=== PATIENT | male | born 1955 | race Caucasian/White ===

== ENCOUNTER → 2023-07-13 | Outpatient (CLI) | payer MEDICARE, OTHER ==
[2023-07-13 15:24] LABS: HCT 38.1 % (39.6-50.0); HGB 12.1 g/dL (13.0-17.0); MCH 26.5 pg (27.0-32.0); MCHC 31.8 g/dL (32.0-37.0); MCV 83.6 FL (80.0-97.0); Mean Platelet Volume 10.6 FL (9.5-12.2); NRBC Per 100 WBC 0 X 10*3/uL (0.00-0.01); Platelet Count 186 X 10*3/uL (140-440); RBC 4.56 X 10*6/uL (4.40-5.60); RDW 13.8 % (11.5-14.5); WBC 6.52 X 10*3/uL (4.50-10.00)
[2023-07-13 15:41] LABS: Blood Urea Nitrogen 17.5 mg/dL (9.0-27.0); Carbon Dioxide 22.8 mmol/L (21.6-31.8); Chloride 105 mmol/L (96-109); Potassium 4.2 mmol/L (3.5-5.5); Sodium 142 mmol/L (135-145)
== END | disposition home or self-care (01) ==
LOC: LABPRL 10:24
PROVIDERS: ATTEND Internal Medicine
DX: Z01.812 Encounter for preprocedural laboratory examination (principal); I35.0 Nonrheumatic aortic (valve) stenosis
CPT/HCPCS: 36415; 80051; 82565; 84520; 85027

== ENCOUNTER 2023-07-20 10:45 | Day surgery (SDC) | payer MEDICARE, OTHER ==
[~2023-07-20 10:45] MED LIST: ALPRAZolam 0.25 MG TAB PO PRN; ALPRAZolam 0.5 MG TAB PO PRN; HEPARIN SODIUM,PORCINE (1 ML) 2,500 UNIT in SODIUM CHLORIDE 0.9% 250 ML IRRIGATION PRN; HEPARIN SODIUM,PORCINE 10,000 UNIT in SODIUM CHLORIDE 0.9% 1,000 ML IRRIGATION PRN; NITROGLYCERIN SL TABS 0.4 MG TAB SUBLINGUAL PRN
[2023-07-20] MEDS: SODIUM CHLORIDE 0.9% 1,000 ML IV ONE ×2 (11:11→15:36)
[2023-07-20] MEDS ORDERED: VERAPAMIL 2.5 MG/ML 2 ML AMP ONE (14:05)
[2023-07-20] MEDS ORDERED: HEPARIN SODIUM 1,000 UN/ML (10ML VL) ONE (14:05)
[2023-07-20] MEDS ORDERED: LIDOCAINE 1% INJ 10MG/ML (20 ML MDV) ONE (14:06)
[2023-07-20] MEDS ORDERED: fentaNYL (PF) 50 MCG/ML 2 ML AMP ONE (14:06)
[2023-07-20] MEDS: BENZOCAINE SPRAY 1 CAN TOPICAL ONE ×2 (14:29→14:31)
[2023-07-20] MEDS: fentaNYL (PF) 50 MCG/ML 2 ML AMP IVP ONE ×2 (14:31→14:33)
[2023-07-20] MEDS: MIDAZOLAM 2 MG/2 ML VIAL IVP ONE ×2 (14:31→14:32)
--- NOTE | 2023-07-20 14:53 | P.TEE ---
Description of Procedure(s): Procedure performed: Transesophageal Echocardiogram with color flow doppler, pulsed wave doppler and continuous wave doppler, moderate conscious sedation Moderate conscious sedation: Moderate conscious sedation was supplied with direct supervision of myself using Versed and Fentanyl. Complications: none Indications: Moderate to severe aortic stenosis PROCEDURE: After the risks, benefits and alternatives of the above mentioned procedure was explained in detail with the patient, informed consent was obtained. Patient was brought to the lab in a fasting state. Patient was given IV Versed and Fentanyl for sedation. The throat was sprayed with Hurricane to anesthetize the throat. A lubricated Omni probe was then introduced into the esophagus and stomach and multiple views were obtained. 2D echo with color flow doppler, pulsed wave doppler and continuous wave doppler was utilized. Agitated saline bubbles were injected to assess for any intra-atrial shunt. The probe was then removed. Patient tolerated the procedure well. Patient was transferred to the post procedure area in stable and satisfactory condition. FINDINGS: 1. The aortic valve appears bicuspid with fusion of the left and right coronary cusp with moderate to severe aortic stenosis, aortic valve area by planimetry 1.0 cm however V-max 3.5 m/s 2. The mitral valve appears be normal with mild mitral regurgitation. 3. Tricuspid valve appears to be normal. 4. The interatrial septum is intact. No evidence of PFO by bubble study. 5. Left atrial appendage is free of clot. 6. Left ventricular ejection fraction 50 to 55%
[2023-07-20] MEDS: LIDOCAINE 1% INJ 10MG/ML (20 ML MDV) SQ ONE (14:56)
[2023-07-20] MEDS: VERAPAMIL SYRINGE (5 MG/10 ML) INTRAARTER ONE (14:58)
[2023-07-20] MEDS: HEPARIN SODIUM 1,000 UN/ML (10ML VL) IVP ONE (15:03)
[2023-07-20] MEDS: IOPAMIDOL-370 100ML BTL INJ ONE (15:16)
[2023-07-20] MEDS ORDERED: RX INFO: IV CONTRAST WAS GIVEN 1 EACH MISC MISCELLANE PRN (15:27)
--- NOTE | 2023-07-20 16:23 | P.CARDCATH ---
Description of Procedure: PROCEDURES PERFORMED: Left heart catheterization, bilateral coronary angiography, ultrasound guided arterial access INDICATION: Aortic stenosis CONSENT:I have discussed the risks, benefits and alternative therapies for the above-mentioned procedure and for both sedation/analgesia as well as necessary blood product administration, if indicated, as they pertain to this patient. The patient has indicated understanding and acceptance of the risks and procedures discussed. PROCEDURE: After the risks, benefits and alternatives of the above mentioned procedure explained in detail with the patient, informed consent was obtained. Patient was taken to the catheterization lab and prepped and draped in usual fashion. Ultrasound guidance was used to assess for arterial access. 1% lidocaine was used to anesthetize the right radial artery. A 6-Hungarian sheath was placed in the right radial artery using modified Seldinger technique and ultrasound guidance. Left coronary angiography was performed with a 5-Hungarian JL 3.5 catheter and right coronary angiography was performed with a 5-Hungarian FR5 catheter in various views. A 5-Hungarian FR5 catheter was inserted into the left ventricle with the use of a 0.035 straight wire and pressure measurements were obtained. The right radial sheath was removed and a TR band was placed with hem ostasis achieved. The patient tolerated the procedure well. Patient was transported back to the post catheterization holding area in stable condition. Conscious Sedation: Patient was monitored under the direct supervision of myself for conscious sedation using Versed and fentanyl for a total duration of 20 minutes HEMODYNAMICS: Aortic: 121/78 LV: 138/8, LVEDP 25, mean gradient with pullback 22.5 mmHg SELECTIVE CORONARY ARTERIOGRAPHY: LEFT MAIN: The left main is a large caliber vessel which bifurcates into the LAD and circumflex. There is no significant stenosis. LEFT ANTERIOR DESCENDING CORONARY ARTERY: LAD is a large caliber vessel which wraps around to the apex. There is a proximal LAD 40% stenosis and otherwise mid LAD 30% stenosis and mild luminal irregularities LEFT CIRCUMFLEX CORONARY ARTERY: Left circumflex is a large caliber vessel with proximal 30% circumflex stenosis and otherwise mild luminal irregularities. The circumflex gives off the PDA and is the dominant vessel. RIGHT CORONARY ARTERY: The right coronary artery is a small caliber vessel which gives off an acute marginal branch and is non-dominant vessel. There is no significant stenosis. FINAL IMPRESSION: 1. Mild to moderate CAD as described above including 30% circumflex, 40% proximal LAD, 30% mid LAD stenosis. 2. Elevated left sided filling pressures 3. Moderate aortic stenosis with mean gradient 22.5 mmHg with pullback PLAN: 1. Aggressive risk factor modification per most recent ACC/AHA guidelines. 2. Trial of diuretics and monitor response
[2023-07-20] MEDS: SODIUM CHLORIDE 0.9% 1,000 ML in EMPTY BAG 1 BAG IV SCH (16:52)
[2023-07-20] MEDS: SODIUM CHLORIDE 0.9% 1,000 ML IV SCH (16:53)
[2023-07-20] MEDS: ASPIRIN 325 MG TAB PO ONE (16:53)
[2023-07-20] MEDS: ATORVASTATIN 80 MG TAB PO ONE (16:53)
[2023-07-20 19:27] VITALS: BP 156/77; PULSE 55; RESP 16; TEMP 97.5
== END 2023-07-20 20:00 | disposition home or self-care (01) ==
LOC: CATHCVL 10:45 → 6NMEDSUR 15:20 → CATHCVL 20:00
PROVIDERS: ATTEND Internal Medicine
DX: I25.10 Atherosclerotic heart disease of native coronary artery without angina pectoris (principal); I35.0 Nonrheumatic aortic (valve) stenosis; I34.0 Nonrheumatic mitral (valve) insufficiency; I71.9 Aortic aneurysm of unspecified site, without rupture; F17.210 Nicotine dependence, cigarettes, uncomplicated; E78.5 Hyperlipidemia, unspecified; J44.9 Chronic obstructive pulmonary disease, unspecified; Z79.899 Other long term (current) drug therapy; Z82.49 Family history of ischemic heart disease and other diseases of the circulatory system
CPT/HCPCS: 93312; 93320; 93325; 93458; 76937; C1769 ×3; C1894; J2250; J2001; J3010; J1644; Q9967